=== PATIENT | female | born 1985 | race Caucasian/White ===

== ENCOUNTER 2021-06-25 17:10 | Outpatient (CLI) | payer OTHER, SELFPAY ==
--- NOTE | 2021-06-25 16:18 | DI.RAD_ITS ---
Exam(s) XR FOOT LT COMPLETE EXAM: XR FOOT LT COMPLETE CLINICAL HISTORY: LT HEEL PAIN, M79.672 TECHNIQUE: COMPARISON: No exams were available for comparison FINDINGS: Three views were obtained. There is no evidence of fracture or dislocation. IMPRESSION: RADIATION DOSE DELIVERED: Total DLP
--- NOTE | 2021-06-25 16:40 | DI.VRAD_ITS ---
PROCEDURE INFORMATION: Exam: XR Left Foot Exam date and time: 06/25/2021 4:01 PM Age: 36 years old Clinical indication: Pain; Foot; Left TECHNIQUE: Imaging protocol: XR Left foot. Views: 3 or more views. COMPARISON: No relevant prior studies available. FINDINGS: Bones/joints: There is no evidence of acute fracture. There is no evidence of joint malalignment or dislocation. Soft tissues: There are no soft tissue masses or fluid collections. IMPRESSION: 1. No evidence of acute fracture. 2. No evidence of acute dislocation. Dictated and Authenticated by: Mata Coleman MD. Ordering:DENIZ Addison MD
== END 2021-06-25 17:30 ==
PROVIDERS: Visit Provider Physician Assistant Medical
DX: M79.672 Pain in left foot (principal)
CPT/HCPCS: 73630

== ENCOUNTER 2021-10-08 16:27 | Outpatient (REF) | payer BC, SELFPAY ==
--- NOTE | 2021-10-08 16:15 | PAPFT_PTH ---
PATIENT: Danny Clinton LOC: [facility] U#:[id number] AGE/SX: 36/F ROOM: RE10/08/[address]: Karen Leon : 1985 BED: DIS: 10/08/2021 SPEC #: [id number] RECD: 10/08/21 17:00 STATUS: CHELSEA NAVARRETE #: [id number] DARCY: 10/08/21 16:[address]: Karen Leon DEPT: [facility] Cytology RECD BY: Aleyda Alonzo ENTERED: 10/08/21 17:00 SP TYPE: PAPFT OTHR DR: Roxie Hickman APRN Tissues: 1 - CX/ENDOCX FOR PAP SMEARS Procedures: PAP THIN PREP/[facility] Screening HPV DNA PROBE Comments: [id number]
== END 2021-10-08 16:28 | disposition home or self-care (01) ==
LOC: LBN 16:27
PROVIDERS: PCP Nurse Practitioner; Visit Provider Obstetrics & Gynecology Gynecology
DX: Z12.4 Encounter for screening for malignant neoplasm of cervix (principal); Z11.51 Encounter for screening for human papillomavirus (HPV)
CPT/HCPCS: 88142; 87624

== ENCOUNTER 2022-01-24 03:09 | Outpatient (CLI) | payer BC, SELFPAY ==
--- NOTE | 2022-01-24 07:00 | DI.MAMMO_ITS ---
Exam(s) MAMMO SCREENING EXAM: MAMMO SCREENING CLINICAL HISTORY: screening,Z12.39,H/O LUMPS IN PAST TECHNIQUE: Mammograms were interpreted according to the usual protocol including computer analysis w ith CAD system, tomosynthesis and C-view imaging. COMPARISON: No exams were available for comparison. Baseline examination. FINDINGS: The breasts are composed of scattered fibroglandular densities, Breast Density category B. No suspicious masses or suspicious microcalcifications are seen. There is a circumscribed nodule ivette ngst the grouping vessels in the upper outer quadrant of left breast consistent with an intramammary lymph node. No skin thickening or abnormal axillary lymph nodes are seen. IMPRESSION: BI-RADS Category 1, Negative mammogram Yearly screening mammography is recommended. Breast Density - Category B, scattered fibroglandular densities. A negative radiographic report should not delay biopsy if a dominant or clinically suspicious mass is present. Up to ten percent of cancers are not identified on mammography. A negative report may reinforce clinical impression. Adenosis and dense breasts may obscure an underlying neoplasm. False positive reports average 6 to 10%. Patient will receive a letter notifying them of these results.
== END 2022-01-24 03:29 ==
PROVIDERS: PCP Nurse Practitioner; Visit Provider Nurse Practitioner
DX: Z12.31 Encounter for screening mammogram for malignant neoplasm of breast (principal); N64.59 Other signs and symptoms in breast
CPT/HCPCS: 77063; 77067

== ENCOUNTER 2022-09-15 16:12 | Outpatient (REF) | payer BC, SELFPAY | END 2022-09-15 16:13 | disposition home or self-care (01) | LOC: LBN 16:12 | PROVIDERS: PCP Nurse Practitioner; Visit Provider Nurse Practitioner | DX: R82.90 Unspecified abnormal findings in urine (principal) | CPT/HCPCS: 87086 ==

== ENCOUNTER 2022-12-07 03:06 | Outpatient (CLI) | payer BC, SELFPAY ==
[2022-12-07 08:32] LABS: Calculated LDL 176 mg/dL (<100); Cholesterol 253 mg/dL (<200); HDL Cholesterol 51 mg/dL (40-60); Triglyceride 130 mg/dL (<150)
[2022-12-08 09:51] LABS: Hepatitis C Ab w Rflx HCV PCR Negative (Negative)
== END 2022-12-07 03:07 | disposition home or self-care (01) ==
LOC: LBO 03:06
PROVIDERS: PCP Nurse Practitioner; Referring Provider Nurse Practitioner; Visit Provider Nurse Practitioner
DX: Z11.59 Encounter for screening for other viral diseases (principal); Z13.220 Encounter for screening for lipoid disorders
CPT/HCPCS: 36415; 80061; 86803

== ENCOUNTER 2023-01-26 01:27 | Outpatient (CLI) | payer BC, SELFPAY ==
--- NOTE | 2023-01-26 07:45 | DI.MAMMO_ITS ---
Exam(s) MAMMO SCREENING EXAM: MAMMO SCREENING CLINICAL HISTORY: screening,z12.39 TECHNIQUE: Mammograms were interpreted according to the usual protocol including computer analysis w [employer] CAD system, tomosynthesis and C-view imaging. COMPARISON: 2021 FINDINGS: The breasts are composed of scattered fibroglandular densities, Breast Density category B. No suspicious masses or suspicious microcalcifications are seen. No skin thickening or abnormal axillary lymph nodes are seen. There has been no significant change from prior exams. IMPRESSION: BI-RADS Category 1, Negative mammogram Yearly screening mammography is recommended. Breast Density - Category B, scattered fibroglandular densities. A negative radiographic report should not delay biopsy if a dominant or clinically suspicious mass is present. Up to ten percent of cancers are not identified on mammography. A negative report may reinforce clinical impression. Adenosis and dense breasts may obscure an underlying neoplasm. False positive reports average 6 to 10%. Patient will receive a letter notifying them of these results.
== END 2023-01-26 01:47 ==
LOC: DI 01:27
PROVIDERS: PCP Nurse Practitioner; Visit Provider Nurse Practitioner
DX: Z12.31 Encounter for screening mammogram for malignant neoplasm of breast (principal); R91.8 Other nonspecific abnormal finding of lung field
CPT/HCPCS: 77063; 77067

== ENCOUNTER 2023-02-07 08:47 | Emergency (ER) | payer OTHER, SELFPAY ==
--- NOTE | 2023-02-07 08:45 | DI.RAD_ITS ---
Exam(s) XR ANKLE RT COMPLETE EXAM: XR ANKLE RT COMPLETE CLINICAL HISTORY: Injury, Swelling. TECHNIQUE: 2D digital imaging was performed of the right ankle. Three images were obtained. AP, la teral and oblique views were obtained. COMPARISON: No exams were available for comparison FINDINGS: BONES: No acute fracture is present. No bony destructive lesion is seen. There is a small plantar ca lcaneal spur. JOINTS: The ankle mortise is normally aligned. SOFT TISSUE: There is soft tissue swelling about the ankle particularly laterally. IMPRESSION: Soft tissue swelling about the ankle. No acute fracture or dislocation. DATA REPOSITORY: RADIATION DOSE DELIVERED:
[2023-02-07 08:51] VITALS: BP 132/74; PULSE 101; RESP 22; TEMP 36.9; O2SAT 100
--- NOTE | 2023-02-07 08:53 | W.ED.GENAD ---
Discharge Plan Disposition Patient Disposition: Home Discharge Details Clinical Impression: Moderate right ankle sprain Primary Care Provider: Roxie Hickman ED Provider: Mandy Taylor Home Meds and New Rx's Prescriptions: Continued Mirena 20 mcg/24 hours (7 yrs) 52 mg intrauterine device 1 insert intrauterine ONCE Rx Instructions: as a single dose fluoxetine 20 mg capsule 20 mg PO DAILY Qty: 90 3RF albuterol sulfate 90 mcg/actuation HFA aerosol inhaler 2 puff inhalation QID PRN (Reason: shortness of breath or wheezing) Qty: 25.5 12RF budesonide [Pulmicort] 0.5 mg/2 mL suspension for nebulization 0.5 mg inhalation DAILY PRN (Reason: sob/wheeze) Qty: 120 12RF cyclobenzaprine 5 mg tablet 5 mg PO TID PRN (Reason: muscle spasm) Qty: 30 0RF bupropion HCl 200 mg tablet sustained-release 12 hr 200 mg PO QAM Qty: 30 1RF bupropion HCl 100 mg tablet sustained-release 12 hr 100 mg PO QAM Qty: 30 1RF Patient Comments: not longer on this dose 02/07/2023 CT Discharge Instructions Instructions: Ankle Sprain (ED) Additional Instructions: No evidence of acute fracture or broken bones on the x-ray. I do suspect you have a moderate sprain. Rest, ice, compression elevation. Wear the walking boot as needed for comfort. Toe-touch weightbearing advance as tolerated. Please take Tylenol or Ibuprofen with food every 4-6 hours as needed for pain and swelling. Follow up with primary care provider in 3-5 days. Return to ED sooner if any worsening or concerns. Increase oral fluids. Stand Alone Forms: Work Release Referrals: Roxie Hickman, ADRIAN [Primary Care Provider] - 5 days Discharge Data Discharge Date/Time-TO BE ENTERED AT DEPARTURE: 02/07/23 10:47 Medical Decision Making 37-year-old female presents to the ER with a chief complaint of right ankle injury which occurred prior to arrival while playing basketball. Patient reports that she rolled her ankle and heard a pop. She did have some swelling noted to her lateral malleolus and tenderness. Distal CMS is intact. No other injuries noted. She is unable to bear any weight. She does have a past medical history of ADD endometriosis and asthma. X-ray ice and Percocet ordered. X-ray results are noted below. Patient placed in a walking boot given crutches and instructed on RICE procedures. Verbalized understanding. This text was generated using [employer] dictation system, please disregard any oddities of phrase or misspellings. Imaging Data Radiologic Study: Imaging: X-Ray Radiologist's impression: EXAM:? XR ANKLE RT COMPLETE CLINICAL HISTORY: ? Injury, Swelling. ? TECHNIQUE:? 2D digital imaging was performed of the right ankle.? Three images were obtained.? AP, lateral and oblique views were obtained. COMPARISON:? No exams were available for comparison FINDINGS: BONES: No acute fracture is present.? No bony destructive lesion is seen. There is a small plantar calcaneal spur. JOINTS: The ankle mortise is normally aligned. SOFT TISSUE: There is soft tissue swelling about the ankle particularly laterally.? IMPRESSION: Soft tissue swelling about the ankle.? No acute fracture or dislocation.? HPI General Mode of arrival: wheelchair. Date/Time Provider Initiated Documentation: 02/07/23 08:49. Limitations to Documentation: no limitations. Information obtained by: patient, RN notes reviewed and old records reviewed. HPI Narrative: 37-year-old female presents to the ER with a chief complaint of right ankle injury which occurred prior to arrival while playing basketball. Patient reports that she rolled her ankle and heard a pop. She did have some swelling noted to her lateral malleolus and tenderness. Distal CMS is intact. No other injuries noted. She is unable to bear any weight. She does have a past medical history of ADD endometriosis and asthma. Related Data Home Medications Medication Instructions Recorded Confirmed levonorgestrel 21 mcg/24 hours (8 1 insert intrauterine ONCE 10/08/21 02/07/23 yrs) 52 mg intrauterine device (Mirena) cyclobenzaprine 5 mg tablet 5 mg PO TID PRN muscle spasm #30 07/29/22 02/07/23 tab-caps albuterol sulfate 90 mcg/actuation 2 puff inhalation QID PRN 09/15/22 02/07/23 aerosol inhaler shortness of breath or wheezing #25.5 grams budesonide 0.5 mg/2 mL suspension 0.5 mg (2 mL) inhalation DAILY PRN 09/15/22 02/07/23 for nebulization (Pulmicort) sob/wheeze #120 mL fluoxetine 20 mg capsule 20 mg PO DAILY #90 caps 09/15/22 02/07/23 bupropion HCl 100 mg tablet,12 hr 100 mg PO QAM #30 tabs 12/15/22 01/10/23 sustained-release bupropion HCl 200 mg tablet,12 hr 200 mg PO QAM #30 tabs 01/16/23 02/07/23 sustained-release Previous Rx's Medication Instructions Recorded cyclobenzaprine 5 mg tablet 5 mg PO TID PRN muscle spasm #30 07/29/22 tab-caps albuterol sulfate 90 mcg/actuation 2 puff inhalation QID PRN 09/15/22 aerosol inhaler shortness of breath or wheezing #25.5 grams budesonide 0.5 mg/2 mL suspension 0.5 mg (2 mL) inhalation DAILY PRN 09/15/22 for nebulization (Pulmicort) sob/wheeze #120 mL fluoxetine 20 mg capsule 20 mg PO DAILY #90 caps 09/15/22 bupropion HCl 100 mg tablet,12 hr 100 mg PO QAM #30 tabs 12/15/22 sustained-release bupropion HCl 200 mg tablet,12 hr 200 mg PO QAM #30 tabs 01/16/23 sustained-release Allergies Allergy/AdvReac Type Severity Reaction Status Date / Time grass pollen Allergy Verified 02/07/23 08:56 Review of Systems All systems reviewed & are unremarkable except as noted in HPI and below Musculoskeletal Musculoskeletal: Reports as per HPI and Reports arthralgias PFSH All Active Problems (Updated 02/07/23 @ 10:23 by Mandy Taylor NP) Moderate right ankle sprain (Acute) Attention deficit disorder (ADD) in adult (Acute) TMJ dysfunction (Acute) 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 in [place]. 09/2021. Repeat Pap/HPV. Presence of intrauterine contraceptive device (Chronic) 2018. Mirena IUD. To treat endometriosis. Endometriosis determined by laparoscopy (Chronic) 2018. L ovarian endometrioma s/p cystectomy. Ovary remains. Asthma (Chronic) Surgical History H/O bilateral salpingectomy 2016. R sided at time of RSO. 2018. L laparoscopic salpingectomy History of delivery (~2016) 2012, 2016, History of oophorectomy, unilateral 2016. RSO at time of repeat c/s. Dx endometrioma. Hx of cholecystectomy (~2015) Status post surgical removal and fulguration of bladder neoplasm (~2017) [place], [place]. Benign. Family History Maternal Grandfather Alcohol use disorder Maternal Grandmother Asthma Depression Maternal Aunt No problems noted. Mother Depression Other Cancer Uterine cancer Social History Smoking/Tobacco Use Status: Never Second Hand Exposure: No Smoking risk assessment performed?: Yes Alcohol Intake: current Alcohol Intake frequency: a few times a month Drug use: Never Substance use type: does not use Adopted: No Caregiver/Support person: No Foster care: No Household members: spouse, family, children and other Details: Sukh. Son, Daughter. Mother just moved in from [place]. Housing: house Number of Children: 2 number of grandchildren: 0 Communication Needs: None Education Level: master's degree Do you need help understanding health information?: Rarely current occupation: Teacher health at [employer] Pets and animals: Yes (1) Pets and animals: dog(s) Sexually active: Yes Do you think of yourself as: straight/heterosexual Current gender identity: female What is your relationship status?: How often do you talk on the phone with friends or family?: three or more times per week How often do you get together with friends or relatives?: once per week Do you belong to any clubs or organized social groups?: no Panel score (0-1 are the most socially isolated patients): 2 What type of physical activity do you participate in: walking and other Details: hiking, Farm [employer] Duration: 30-45 minutes/day Frequency: daily Mickie/Presybeterian: None Special mickie needs: No Seatbelt use: always Helmet use: Yes Helmet use: always Drive intox or ride w/intox local hazmat driver: No Additional Social history: 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 Female Reproductive History Menstrual control method: progestin IUCD and permanent sterilization (bialteral salpingectomy. 2018. Mirena IUD placed.) History History 3 Para 2 Hx # Term Pregnancies 2 Multiple births Hx # Pregnancies Ectopic pregnancies AB induced Hx Number of Living Children AB spontaneous 1 Exam Extrem Right lower extremity: ankle Details: tenderness and swelling Details: laterally; no unusual warmth, no abrasions and no lacerations
[2023-02-07] MEDS: oxyCODONE 5 mg/Acetaminophen 325 mg TAB 1 TAB PO (09:02)
== END 2023-02-07 10:47 | disposition home or self-care (01) ==
LOC: ER 11:13
PROVIDERS: Emergency Provider Registered Nurse Emergency; PCP Nurse Practitioner
DX: S93.401A Sprain of unspecified ligament of right ankle, initial encounter (principal); X50.1XXA Overexertion from prolonged static or awkward postures, initial encounter; Y93.67 Activity, basketball; J45.909 Unspecified asthma, uncomplicated; Z79.51 Long term (current) use of inhaled steroids
CPT/HCPCS: 99283; 73610

== ENCOUNTER 2023-02-27 00:25 | Outpatient (CLI) | payer OTHER, SELFPAY ==
--- NOTE | 2023-02-27 07:30 | DI.MRI_ITS ---
Exam(s) MR LOWER JOINT RT WO EXAM: MR LOWER JOINT RT WO CLINICAL HISTORY: Significant right ankle pain status post inversion,s93.401a,m25.571 TECHNIQUE: Multiplanar multisequence MRI was performed without intravenous contrast. COMPARISON: CR XR ANKLE RT COMPLETE from 02/07/2023 FINDINGS: BONES/JOINTS: No fracture or contusion pattern. No bone lesions identified. The talar dome is smooth. The ankle mortise is maintained. There is a very small joint effusion. LIGAMENTS: The tibiofibular and calcaneofibular ligaments are intact. The anterior talofibular ligame nt appears discontinuous at its insertion site onto the fibula and a partial tear cannot be excluded. The posterior talofibular ligament is intact. The deltoid ligament is intact. The syndesmosis is u nremarkable. Sinus tarsi is normal. MUSCULOTENDINOUS STRUCTURES: Achilles tendon: Unremarkable. There is a small amount of fluid seen in the retrocalcaneal bursa. Plantar fascia: Unremarkable. Anterior Extensor tendons: Unremarkable. Posterior Tibialis: Unremarkable. There is fluid seen around the posterior tibialis tendon. Flexor Digitorum longus: Unremarkable. There is a small amount of fluid seen around the flexor digito rum longus tendon. Flexor Hallucis longus: Unremarkable. There is fluid seen around the flexor hallucis longus tendon. Peroneus longus: Unremarkable. Peroneus brevis:Unremarkable. SOFT TISSUES: There is edema seen in the soft tissues in the medial ankle just above the level of the ankle joint. No focal fluid collection is seen. There is also seen fluid posterior to the ankle. OTHER FINDINGS: None. IMPRESSION: 1. No evidence of an occult fracture. 2. No evidence of a tendon tear. 3. The anterior talofibular ligament appears discontinuous at its insertion site onto the fibula and a partial tear cannot be excluded. 4. No other evidence of a ligament tear. 5. Small amount of fluid seen in the retrocalcaneal bursa. This may reflect a mild bursitis. 6. Edema seen in the soft tissues of the medial ankle. 7. Small ankle joint effusion and a small amount of fluid seen around the medial ankle tendons withou t evidence of a tendon tear.Tenosynovitis should be considered. DATA REPOSITORY:
== END 2023-02-27 00:45 ==
LOC: DI 00:26
PROVIDERS: PCP Nurse Practitioner; Visit Provider Nurse Practitioner Family
DX: M25.571 Pain in right ankle and joints of right foot (principal); S93.401A Sprain of unspecified ligament of right ankle, initial encounter
CPT/HCPCS: 73721

== ENCOUNTER 2023-04-16 20:09 | Emergency (ER) | payer BC, SELFPAY ==
[2023-04-16 20:16] VITALS: BP 117/72; PULSE 94; RESP 20; TEMP 37.1; O2SAT 99
--- NOTE | 2023-04-16 20:36 | W.ED.GENAD ---
Discharge Plan Disposition Patient Disposition: Home Condition: Stable Discharge Details Clinical Impression: Avulsion of skin of right lower leg Primary Care Provider: Roxie Hickman ED Provider: Mandy Taylor Home Meds and New Rx's Prescriptions: New cephalexin 500 mg tablet 500 mg PO BID 7 Days Qty: 14 0RF No Action Mirena 20 mcg/24 hours (7 yrs) 52 mg intrauterine device 1 insert intrauterine ONCE Rx Instructions: as a single dose fluoxetine 20 mg capsule 20 mg PO DAILY Qty: 90 3RF albuterol sulfate 90 mcg/actuation HFA aerosol inhaler 2 puff inhalation QID PRN (Reason: shortness of breath or wheezing) Qty: 25.5 12RF budesonide [Pulmicort] 0.5 mg/2 mL suspension for nebulization 0.5 mg inhalation DAILY PRN (Reason: sob/wheeze) Qty: 120 12RF cyclobenzaprine 5 mg tablet 5 mg PO TID PRN (Reason: muscle spasm) Qty: 30 0RF bupropion HCl [Wellbutrin XL] 300 mg tablet extended release 24 hr 300 mg PO QAM Qty: 30 1RF Discharge Instructions Instructions: Animal Bite (ED), Skin Avulsion (ED) Additional Instructions: You were given a tetanus booster here in the department. Please take the antibiotic twice daily with yogurt or probiotic as directed. Wash with running soap and water daily. Allow to air dry at least 2 hours a day. Keep clean and dry. Watch for signs of infection including red streaks, drainage, swelling or increased pain. Follow up with primary care provider in 3-5 days. Return to ED sooner if any worsening or concerns. Increase oral fluids. Please take Tylenol or Ibuprofen with food every 4-6 hours as needed for pain and swelling. Referrals: Roxie Hickman, PRINCIPAL WEB DEVELOPER [Primary Care Provider] - 1 week Discharge Data Discharge Date/Time-TO BE ENTERED AT DEPARTURE: 04/16/23 21:15 Medical Decision Making 37-year-old female presents to the ER with a chief complaint of right posterior knee laceration which occurred just prior to arrival. Patient reports that she was feeding her before when he had advertently cut her leg with his tusk. She is unsure of her tetanus status. Bleeding is controlled upon arrival. She has approximately 3 cm in length avulsion and a smaller abrasion/laceration just inferior to this. Full range of motion. Distal CMS intact. Wound was cleaned by nursing staff development coordinator, nonadherent dressing applied. Patient was given a Tdap booster. Instructed on home care and strict return instructions, verbalized understanding. Full range of motion. Imaging not done due to no puncture wound or suspicion for foreign body. Patient was given cephalexin here in the department and a prescription for cephalexin. To treat empirically for dirty wound. This text was generated using [employer] dictation system, please disregard any oddities of phrase or misspellings. HPI General Mode of arrival: ambulatory. Date/Time Provider Initiated Documentation: 04/16/23 20:28. Limitations to Documentation: no limitations. Information obtained by: patient, RN notes reviewed and old records reviewed. HPI Narrative: 37-year-old female presents to the ER with a chief complaint of right posterior knee laceration which occurred just prior to arrival. Patient reports that she was feeding her before when he had advertently cut her leg with his tusk. She is unsure of her tetanus status. Bleeding is controlled upon arrival. She has approximately 3 cm in length avulsion and a smaller abrasion/laceration just inferior to this. Full range of motion. Related Data Home Medications Medication Instructions Recorded Confirmed levonorgestrel 21 mcg/24 hours (8 1 insert intrauterine ONCE 10/08/21 04/16/23 yrs) 52 mg intrauterine device (Mirena) cyclobenzaprine 5 mg tablet 5 mg PO TID PRN muscle spasm #30 07/29/22 04/16/23 tab-caps albuterol sulfate 90 mcg/actuation 2 puff inhalation QID PRN 09/15/22 04/16/23 aerosol inhaler shortness of breath or wheezing #25.5 grams budesonide 0.5 mg/2 mL suspension 0.5 mg (2 mL) inhalation DAILY PRN 09/15/22 04/16/23 for nebulization (Pulmicort) sob/wheeze #120 mL fluoxetine 20 mg capsule 20 mg PO DAILY #90 caps 09/15/22 04/16/23 bupropion HCl 300 mg 24 hr tablet, 300 mg PO QAM #30 tabs 02/27/23 04/16/23 extended release (Wellbutrin XL) cephalexin 500 mg tablet 500 mg PO BID 7 days #14 tabs 04/16/23 Previous Rx's Medication Instructions Recorded cyclobenzaprine 5 mg tablet 5 mg PO TID PRN muscle spasm #30 07/29/22 tab-caps albuterol sulfate 90 mcg/actuation 2 puff inhalation QID PRN 09/15/22 aerosol inhaler shortness of breath or wheezing #25.5 grams budesonide 0.5 mg/2 mL suspension 0.5 mg (2 mL) inhalation DAILY PRN 09/15/22 for nebulization (Pulmicort) sob/wheeze #120 mL fluoxetine 20 mg capsule 20 mg PO DAILY #90 caps 09/15/22 bupropion HCl 300 mg 24 hr tablet, 300 mg PO QAM #30 tabs 02/27/23 extended release (Wellbutrin XL) cephalexin 500 mg tablet 500 mg PO BID 7 days #14 tabs 04/16/23 Allergies Allergy/AdvReac Type Severity Reaction Status Date / Time grass pollen Allergy Verified 04/16/23 20:19 General Stated Complaint: Laceration BARI: 4 Review of Systems Integumentary/Breasts Skin/Breast: Reports as per HPI and Reports wounds PFSH All Active Problems (Updated 04/16/23 @ 20:59 by Mandy Taylor NP) Avulsion of skin of right lower leg (Acute) Right ankle sprain (Acute) Ankle pain, right (Acute) Attention deficit disorder (ADD) in adult (Acute) TMJ dysfunction (Acute) 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 in [place]. 09/2021. Repeat Pap/HPV. Presence of intrauterine contraceptive device (Chronic) 2018. Mirena IUD. To treat endometriosis. Endometriosis determined by laparoscopy (Chronic) 2018. L ovarian endometrioma s/p cystectomy. Ovary remains. Asthma (Chronic) Surgical History H/O bilateral salpingectomy 2016. R sided at time of RSO. 2018. L laparoscopic salpingectomy History of delivery (~2015) 2012, 2015, History of oophorectomy, unilateral 2016. RSO at time of repeat c/s. Dx endometrioma. Hx of cholecystectomy (~2015) Status post surgical removal and fulguration of bladder neoplasm (~2017) [place], [place]. Benign. Family History Maternal Grandfather Alcohol use disorder Maternal Grandmother Asthma Depression Maternal Aunt No problems noted. Mother Depression Other Cancer Uterine cancer Social History Smoking/Tobacco Use Status: Never Second Hand Exposure: No Smoking risk assessment performed?: Yes Alcohol Intake: current Alcohol Intake frequency: a few times a month Drug use: Never Substance use type: does not use Adopted: No Caregiver/Support person: No Foster care: No Household members: spouse, family, children and other Details: Sukh. Son, Daughter. Mother just moved in from [place]. Housing: house Number of Children: 2 number of grandchildren: 0 Communication Needs: None Education Level: master's degree Do you need help understanding health information?: Rarely current occupation: Teacher health at [employer] Pets and animals: Yes (1) Pets and animals: dog(s) Sexually active: Yes Do you think of yourself as: straight/heterosexual Current gender identity: female What is your relationship status?: How often do you talk on the phone with friends or family?: three or more times per week How often do you get together with friends or relatives?: once per week Do you belong to any clubs or organized social groups?: no Panel score (0-1 are the most socially isolated patients): 2 What type of physical activity do you participate in: walking and other Details: hiking, Farm Chores Duration: 30-45 minutes/day Frequency: daily Mickie/Nondenominational: None Special mickie needs: No Seatbelt use: always Helmet use: Yes Helmet use: always Drive intox or ride w/intox driver engineer: No Additional Social history: 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 Female Reproductive History Menstrual control method: progestin IUCD and permanent sterilization (bialteral salpingectomy. 2018. Mirena IUD placed.) History History 3 Para 2 Hx # Term Pregnancies 2 Multiple births Hx # Pregnancies Ectopic pregnancies AB induced Hx Number of Living Children AB spontaneous 1 Exam Skin Wounds: wounds noted avulsion right posterior knee size (3cm x3cm) Extrem Right lower extremity: knee Knee images: 1. Approximately 3 cm x 2 cm avulsion 2. Puncture wound Course Vital Signs Vital signs: Vital Signs Temperature 37.1 C 04/16/23 20:16 Pulse 94 H 05/28/23 20:16 Respiratory Rate 20 04/16/23 20:16 Blood Pressure 117/72 04/16/23 20:16 Pulse Oximetry 99 04/16/23 20:16 Temperature 37.1 C 04/16/23 20:16 Temperature Source Oral 04/16/23 20:16 Pulse 94 H 04/16/23 20:16 Respiratory Rate 20 04/16/23 20:16 Respiratory Effort Normal 04/16/23 20:21 Blood Pressure 117/72 04/16/23 20:16 Blood Pressure Position Sitting 04/16/23 20:16 Pulse Oximetry 99 04/16/23 20:16 Oxygen Delivery Method Room Air 04/16/23 20:16 Oxygen Flow Rate 0 04/16/23 20:16 Pain Level 2 04/16/23 20:16
[2023-04-16] MEDS: Cephalexin 500 MG CAP, 2 CAPS/BTL PO (20:56)
[2023-04-16] MEDS: Cephalexin 500 MG CAP PO (20:56)
--- NOTE | 2023-04-16 21:16 | NUR.NOTE ---
Nursing Note: Pt understands d/c instructions and next steps of care. Pt given extra wound dressing supplies for home use. Pt stated, thank you for making this experience so much better, I really appreciate it.
== END 2023-04-16 21:15 | disposition home or self-care (01) ==
PROVIDERS: Emergency Provider Registered Nurse Emergency; PCP Nurse Practitioner
DX: S81.011A Laceration without foreign body, right knee, initial encounter (principal); Y99.8 Other external cause status; Y93.K9 Activity, other involving animal care
CPT/HCPCS: 90471; 99284

== ENCOUNTER 2023-06-09 01:54 | Outpatient (CLI) | payer BC, SELFPAY ==
[2023-06-09 09:16] LABS: Abs Immature Grans 0.02 10^3/uL (0.0-0.06); Absolute Basophil Count 0.05 10^3/uL (0.0-0.2); Absolute Eosinophil Count 0.09 10^3/uL (0.0-0.7); Absolute Lymphocyte Count 3.17 10^3/uL (1.2-3.4); Absolute Monocyte Count 0.36 10^3/uL (0.1-0.8); Absolute Neutrophil Count 3.22 10^3/uL (1.2-6.7); Basophils % 0.7; Eosinophils % 1.3; HCT 41.6 % (36.0-46.0); HGB 13.5 g/dL (11.2-15.7); Immature Grans % 0.3; Lymphocytes % 45.9; MCH 29.4 pg (27.0-33.0); MCHC 32.5 % (32.0-36.0); MCV 91 fL (80-95); MPV 10.2 fL (8.0-11.0); Monocytes % 5.2; Neutrophils % 46.6; Platelet Count 313 10^3/uL (130-400); RBC 4.59 10^6/uL (3.93-5.22); RDW 13.3 % (11.7-14.6); RDW-SD 44.3 fL; WBC 6.91 10^3/uL (4.4-10.8)
[2023-06-09 09:17] LABS: ESR 29 mm/hr (0-20)
[2023-06-09 10:41] LABS: Vitamin D 25 Total 25.5 ng/mL (30-100)
[2023-06-09 10:44] LABS: ALT 19 U/L (14-59); AST 15 U/L (15-37); Albumin 3.9 g/dL (3.4-5.0); Alkaline Phosphatase 60 U/L (46-116); Anion Gap 7.8 mmol/L (3-11); BUN 13 mg/dL (7-18); Bilirubin, Total 0.4 mg/dL (0.2-1.0); CO2 28.2 mmol/L (21.0-32.0); CREATININE 0.9 mg/dL (0.55-1.02); Calcium 9.2 mg/dL (8.5-10.1); Chloride 103 mmol/L (98-107); Estimated GFR 82.88 (mL/min/1.73m2); Glucose 74 mg/dL (74-106); Potassium 4.3 mmol/L (3.5-5.1); Sodium 139 mmol/L (136-145); TSH (W/Ref FT4) 2.36 uIU/mL (0.36-3.74); Total Protein 7.5 g/dL (6.4-8.2); Vitamin B12 343 pg/mL (193-986)
[2023-06-09 20:29] LABS: Rheumatoid Factor <8.6 IU/mL (<12.0)
[2023-06-12 09:17] LABS: Lyme Ab w Rflx to Lyme Confirm Negative (Negative)
[2023-06-12 14:34] LABS: ANA Interpretation Negative (Negative)
[2023-06-13 15:38] LABS: Anaplasma phagocytophilum Negative (Negative); B. miyamotoi PCR Negative (Negative); Babesia divergens/MO-1 Negative (Negative); Babesia duncani Negative (Negative); Babesia microti Negative (Negative); Ehrlichia chaffeensis Negative (Negative); Ehrlichia ewingii/canis Negative (Negative); Ehrlichia muris eauclairensis Negative (Negative)
== END 2023-06-09 01:55 | disposition home or self-care (01) ==
LOC: LBO 01:56
PROVIDERS: PCP Nurse Practitioner; Referring Provider Nurse Practitioner; Visit Provider Nurse Practitioner
DX: M25.50 Pain in unspecified joint; R06.83 Snoring; R40.0 Somnolence; R53.83 Other fatigue; E55.9 Vitamin D deficiency, unspecified; I10 Essential (primary) hypertension; Z11.59 Encounter for screening for other viral diseases
CPT/HCPCS: 36415; 80053; 82306; 85652; 87798; 82607; 84443; 85025; 86038; 86431; 86618

== ENCOUNTER → 2023-11-09 09:44 | Outpatient (CLI) | payer BC, SELFPAY ==
--- NOTE | 2023-11-09 09:15 | DI.RAD_ITS ---
Exam(s) XR CHEST 2V PA LATERAL EXAM: XR CHEST 2V PA LATERAL CLINICAL HISTORY: R05.9 cough, R06.89 other abnormalities of breathing,J45.909 asthma TECHNIQUE: 2D digital imaging was performed of the chest. Two images were obtained. PA and lateral views were obtained. COMPARISON: No exams were available for comparison FINDINGS: MEDIASTINUM: Normal. HEART: Normal. PULMONARY VASCULATURE: Normal. LUNGS: Mild perihilar bronchial wall thickening. No focal consolidating infiltrates are seen. PLEURAL SPACE: No pleural effusion or pneumothorax. BONE:Within normal limits for the patient's age. OTHER FINDINGS:Normal. IMPRESSION: Mild bronchial wall thickening. This can be seen with bronchitis. Please correlate clinically. No focal consolidation. DATA REPOSITORY: RADIATION DOSE DELIVERED:
--- OUTSIDE RECORDS SUMMARY | 2023-11-09 09:46 | XMS_ITS | Continuity of Care Document ---
Author Name Unknown Organization [facility] Ambulatory Clinics Address [address] [place] [address] Care Team Providers Care Clerical Order Filler Name Role Phone RITU RAE NP Primary Care Physician Encounter [facility] NBR [id number] Date(s): 03/31/23 - 03/31/23 [facility] Ambulatory Clin[facility] [address] [place] [address]- [place] Patient Care team information Care Team Personnel Name: RITU RAE NP Position: No Access Member Role: Primary Care Physician Address: Address: [address] [place] [id number] [place] [address] Care Team Related Persons Name: Haroldo TREVIZO Address: Home [address] [address]
--- OUTSIDE RECORDS SUMMARY | 2023-11-09 09:46 | XMS_ITS | Continuity of Care Document ---
Author Name Unknown Organization [facility] Ambulatory Clinics Address [address] [place] [address] Care Team Providers Care Automobile Radiator Mechanic Name Role Phone KYRA CAMPBELL, RITU Williamson Primary Care Physician Encounter [facility] NBR [id number] Date(s): 04/25/23 - 04/25/23 [facility] Ambulatory Clinics [address] [place] [address]- [place] Encounter Diagnosis Instability of right ankle joint(Discharge Diagnosis) - 04/25/23 Discharge Disposition: Home or Self Care Attending Physician: Christa Saez ASBESTOS MICROSCOPIST, Allergies, Adverse Reactions, Alerts No Known Medication Allergies Functional Status 04/25/23 Other exposure to Infectious Disease Non e Medications FLUoxetine (Eqv-Sarafem) 20 mg oral tablet 20 mg = 1 tab, Oral, Daily, # 30 tab, 0 Refill(s) Start Date: 04/25/23 Status: Ordered Wellbutrin SR 100 mg/12 hours oral tablet, extended release 100 mg = 1 tab, Oral, Daily, # 60 tab, 0 Refill(s) Start Date: 04/25/23 Status: Ordered Problem List Condition Confirmation Course Effective Dates Status Health [facility] Informant Asthma Confirmed Active Procedures Procedure Date Related Diagnosis Body Site Status section 01/31/16 Complete d Removal of gallbladder 2016 Co mpleted Removal of ovarian cyst 2015 C ompleted section 04/24/13 Complete d Removal of ovarian cyst 2010 C ompleted Procedure on knee 1998 Complet ed Vital Signs Most recent to oldest [Reference Range]: 1 Peripheral Pulse Rate [60-100 bpm] 61 bp m (04/25/23 8:47 AM) Blood Pressure [90-140/60-90 mmHg] 110/7 0mmHg (04/25/23 8:47 AM) Weight 104.33 kg (04/25/23 8:47 AM) Weight Measured (lbs) 230.008 lb (04/25/23 8:47 AM) Height 172.72 cm (04/25/23 8:47 AM) Height/Length Measured (inches) 68 inch (04/25/23 8:47 AM) BSA Measured 2.24 m2 (04/25/23 8:47 AM) Body Mass Index 34.97 kg/m2 (04/25/23 8:47 AM) Social History Social History Type Response Tobacco Never tobacco user T obacco Use:. Sex Hospital Discharge Instructions Follow Up Care 04/12/2023 14:09:33 With:Return to this practice Address: When: only if needed Physician Outpatient Note * Christa Nadja GUERRERON,: PERFORM Event Display: Office Clinic Note Physician Authored Date: [id number] REENA TREVIZO :1985 Age:37 years Sex:Female Visit Date:04/25/2023 Primary Care Physician: RITU RAE NP A Chief Complaint Right ankle sprain History of Present Illness Reena is a very pleasant 37-year-old woman. ??She comes in today for second opinion of a right ankle injury that occurred at work almost 3 months ago.?? 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 ??At the time of injury she felt??a popping and crunching, this was very painful. ??[facility]in the emergency department where x-rays were unrevealing.?? She was treated appropriately withcrutches??and advised to follow-up with orthopedics. ??She was converted to a walking boot??which she tells me she wore for about 8 weeks. ??She also used a scooter. ?? She also started physical therapy.??She has now converted to a lace up ankle brace.?? She feels that the joint is out of alignment, at times either she or the school nurse has to push it back intoplace.?? Her pain has improved. ??She does not have pain at rest, but describes 2-3/10 pain??with weightbearing, activity. ??If she attempts any [id number] movement or inadvertently tweaks the ankle her pain increases.?? She denies numbness or tingling. ??She is concerned about the persistent instability as she is a mobile teacher, going from classroom to classroom. ??She also has a small farm. Review of Systems Constitutional:?No??fevers,?No??chills,?No??sweats Respiratory:?No??shortness of breath,?No??cough Cardiovascular:?No??Chest pain,?No??palpitations,?No??syncope Gastrointestinal:?Nonausea,?No??vomiting,?No??diarrhea Musculoskeletal:??No??back pain,??No??neck pain,??Positive for??right ankle pain/instability,??No??muscle pain,??No??decreased range of motion Integumentary:?No??rash,?No??pruritus,?No??abrasions Neurologic: Alert & oriented X 4 Psychiatric:?No??anxiety,?No??depression Physical Exam Vitals & Measurements HR:??61??(Peripheral)?? BP:??110/70?? SpO2:??96%?? HT:??172.72??cm?? WT:??104.33??kg?? BMI:??34.97?? Pain Score:??2?? BSA:??2.24?? The patient is alert and oriented x3. ??Pleasant and cooperative. ??Well-dressed and well-groomed.?? Appears stated age and is well-nourished and well- developed.?? Examination of the right ankle reveals swelling, primarily laterally.?? There is mild swelling medially. ??No bony point tenderness about the ankle. ??There is point tenderness in the region of the ATFL and throughout the deltoid ligaments.?? Achilles tendon is without palpable disruption or pain. ??Pastrana's test is negative.?? There is discomfort with ligamentous testing laterally??with??soft endpoint compared to the??contralateral ankle.?? No ligamentous instability medially.?? Dorsi and plantarflexion are intact.?? Dorsalis pedis is 2+. ??Skin is warm and pink with brisk capillary refill and sensation is intact distally. Assessment/Plan 1.??Instability of right ankle joint??M25.371 Reena is a very pleasant 37-year-old woman who sustained a right ankle sprain at work about 3 months ago. ??She has been treated appropriately with a walking boot, and is now in a lace up brace. ??She is also been going to physical therapy. ??Although the ankle pain has improved, she continues to have episodes of instability which are quite concerning to her as she lives a very active lifestyle.?? She had an MRI which showed a partial tear of the ATFL.?? At this point as she has not responded to appropriate treatment and continues to have instability of the ankle, we discussed referral to a foot and ankle specialist to see if she would be a candidate for stabilization surgery.?? She would like to move forward with that referral.?? She may continue with all supportive care, I have encouraged her to continue with physical therapy and her home exercise program.?? She may continue to work without restrictions.?? I will see her back in our office??on an as-needed basis. ??She is encouragedto contact me with questions or concerns anytime.?? I spent 30 minutes in??reviewing the record, seeing the patient and documenting in the medical record. Referral Orders Referral Management, Medical Service: Orthopedic Surgery, Reason: Right ankle instability, Type:Evaluate and Treat, Refer To: Provider Not Specified, [facility], [address] [place] [address]., Start: 04/25/23, Instructions: Trung Delgado MD at [facility] Please call p... Follow Up Instructions With When Contact Information Return to this practice Only if needed Additional Instructions: Problem List/Past Medical History Ongoing No qualifying data Historical No qualifying data Medications FLUoxetine (Eqv-Sarafem) 20 mg oral tablet, 20 mg= 1 tab, Oral, Daily Wellbutrin SR 100 mg/12 hours oral tablet, extended release, 100 mg= 1 tab, Oral, Daily Allergies No active allergies Social History Electronic Cigarette/Vaping Electronic Cigarette Use: Never. Employment/School Work/School description: Health Teacher. Tobacco Never tobacco user Tobacco Use:. Diagnostic Results Diagnostic Study Interpretation: X-rays of the right ankle from February 07, 2023 at [facility] have been pushed to the [facility] system and are personally reviewed.?? No acute fracture or dislocation.?? No degenerative changes seen.?? Soft tissueswelling is noted laterally. MRI of the right ankle from February 27, 2023 at [facility] has been pushed to the [facility] system and is personally reviewed.?? No acute fracture, bone marrow edema or bone lesions noted.?? Partial tear noted at the ATFL.?? Syndesmosis is unremarkable as are the remainder of the ligaments.?? No tendon injury.??Small amount of fluid seen at the retrocalcaneal bursa which could represent bursitis. Electronically Signed on 04/25/23 09:45 AM Christa Saez APRN, Patient Care team information Care Team Personnel Name: RITU RAE NP Position: No Access Member Role: Primary Care Physician Address: Address: [address] [place] [address]- Care Team Related Persons Name: Haroldo TREVIZO Address: [place] [id number]
--- OUTSIDE RECORDS SUMMARY | 2023-11-09 09:46 | XMS_ITS | Continuity of Care Document ---
Author Name Unknown Organization [facility] or Sleep Disorders Address [address] [place] [address] Care Team Providers Care Head Resident Name Role Phone Roxie Hickman Primary Care Physician [phone] Encounter [facility] [id number] Date(s): 09/19/23 - 09/19/23 [facility] [address] [place] [address] Discharge Disposition: Home Allergies, Adverse Reactions, Alerts Substance Reaction Severity Status mixed grass pollens allergen extract Unkn own Active Assessment and Plan Future Appointments Medications Adderall 10 mg oral tablet 10 mg 1 tab, Oral, every morning, 0 Refill(s) Start Date: 09/19/23 Status: Ordered albuterol 90 mcg/inh aerosol inhaler PRN, 0 Refill(s) Start Date: 09/12/23 Status: Ordered budesonide 0.5 mg/2 mL inhalation suspension 0.5 mg = 2 mL, NEB, Daily, PRN, # 60 mL, 0 Refill(s) Start Date: 09/12/23 Status: Ordered FLUoxetine 20 mg oral capsule 20 mg = 1 cap, Oral, Daily, # 30 cap, 0 Refill(s) Start Date: 09/12/23 Status: Ordered Mirena 52 mg intrauteral device 0 Refill(s) Start Date: 09/12/23 Status: Ordered zolpidem 5 mg oral tablet See Instructions, take 1-2 PO night of sleep study if needed, # 2 tab, 0 Refill(s), Pharmacy: [facility], 173.99, cm, 09/19/23 8:54:00 EDT, Height, 104.33, kg, 09/19/23 8:58:00 EDT, Weight Dosing Start Date: 09/19/23 Status: Ordered Problem List Condition Confirmation Course Effective Dates Status H ealth Status Informant Right ankle pain Confirmed Active Asthma Confirmed Active Attention deficit disorder Confirmed Active Daytime somnolence Confirmed Active Endometriosis determined by laparoscopy Confirmed Active History of HPV infection Confirmed Active Right ankle sprain Confirmed Active TMJ dysfunction Confirmed Active Social History Social History Type Response Tobacco Never tobacco user T obacco Use:. Sex Patient Care team information Care Team Personnel Name: Roxie Hickman BUSINESS SERVICES INTERN Position: No Access Member Role: Primary Care Physician Address: Address: [facility] [address] [place] [address]- Care Team Related Persons Name: BIBIANA TREVIZO Address: Home [address] [place], [place] [id number]
== END ==
PROVIDERS: PCP Nurse Practitioner; Visit Provider Student in an Organized Health Care Education/Training Program
DX: J45.909 Unspecified asthma, uncomplicated (principal); R06.89 Other abnormalities of breathing
CPT/HCPCS: 71046

== ENCOUNTER 2024-09-30 08:44 | Outpatient (REF) | payer BC, SELFPAY ==
--- NOTE | 2024-09-30 09:35 | PAPFT_PTH ---
PATIENT: Danny Clinton LOC: [facility] U#:[id number] AGE/SX: 39/F ROOM: RE09/30/[address]: Karen Leon : 1985 BED: DIS: 09/30/2024 SPEC #: [id number] RECD: 09/30/24 13:06 STATUS: CHELSEA NAVARRETE #: [id number] DARCY: 09/30/24 09:[address]: Karen Leon DEPT: [facility] Cytology RECD BY: Aleyda Alonzo ENTERED: 09/30/24 13:07 SP TYPE: PAPFT OTHR DR: Roxie Hickman APRN Tissues: 1 - CX/ENDOCX FOR PAP SMEARS Procedures: PAP THIN PREP/UVM Screening HPV DNA PROBE Comments: [id number] (HPV 16 & 18/45)
== END 2024-09-30 08:45 | disposition home or self-care (01) ==
LOC: LBN 08:44
PROVIDERS: PCP Nurse Practitioner; Visit Provider Obstetrics & Gynecology Gynecology
DX: Z12.4 Encounter for screening for malignant neoplasm of cervix (principal)
CPT/HCPCS: 88142; 87624

== ENCOUNTER 2024-10-22 01:02 | Outpatient (CLI) | payer BC, SELFPAY ==
--- NOTE | 2024-10-22 09:00 | DI.MAMMO_ITS ---
Exam(s) MAMMO SCREENING EXAM: MAMMO SCREENING CLINICAL HISTORY: screening TECHNIQUE: Mammograms were interpreted according to the usual protocol including computer analysis w [employer] CAD system, tomosynthesis and C-view imaging. COMPARISON: 2021 and 2022 FINDINGS: The breasts are composed of scattered fibroglandular densities, Breast Density category B. No suspicious masses or suspicious microcalcifications are seen. No skin thickening or abnormal axillary lymph nodes are seen. There has been no significant change from prior exams. IMPRESSION: BI-RADS Category 1, Negative mammogram Yearly screening mammography is recommended. Breast Density - Category B, scattered fibroglandular densities. A negative radiographic report should not delay biopsy if a dominant or clinically suspicious mass is present. Up to ten percent of cancers are not identified on mammography. A negative report may reinforce clinical impression. Adenosis and dense breasts may obscure an underlying neoplasm. False positive reports average 6 to 10%. Patient will receive a letter notifying them of these results.
== END 2024-10-22 01:22 ==
LOC: DI 01:03
PROVIDERS: PCP Nurse Practitioner; Visit Provider Obstetrics & Gynecology Gynecology
DX: Z12.31 Encounter for screening mammogram for malignant neoplasm of breast (principal); R92.323 Mammographic fibroglandular density, bilateral breasts
CPT/HCPCS: 77063; 77067

== ENCOUNTER 2025-01-01 15:57 | Outpatient (REF) | payer BC, SELFPAY ==
--- NOTE | 2025-01-01 15:20 | PAPNONF_PTH ---
PATIENT: Danny Clinton LOC: [facility] U#:[id number] AGE/SX: 39/F ROOM: RE01/01/[address]: Roxie Hickman APRN : 1985 BED: DIS: 01/01/2025 SPEC #: [id number] RECD: 01/01/25 18:17 STATUS: CHELSEA RENina #: [id number] DARCY: 01/01/25 15:[address]: Roxie Hickman DEPT: [facility] Cytology RECD BY: Aleyda Alonzo Tissues: 1 - BODY FLUID CYTO(SPUTUM/URINE)UV Procedures: BODY FLUID CYTO(URINE/SPUTUM) Comments: [id number] (TV = 60 ml, 30 ml CYTOLYT ADDED) (REFRIGERATED)
== END 2025-01-01 15:58 | disposition home or self-care (01) ==
LOC: LBN 15:57
PROVIDERS: PCP Nurse Practitioner; Visit Provider Nurse Practitioner
DX: R82.998 Other abnormal findings in urine (principal)
CPT/HCPCS: 88104

== ENCOUNTER 2025-01-27 10:07 | Emergency (ER) | payer BC, SELFPAY ==
[2025-01-27] VITALS (38 sets, daily range): BP systolic 115–147; BP diastolic 71–103; PULSE 71–105; RESP 8–26; TEMP 36.7; O2SAT 97–100
--- NOTE | 2025-01-27 10:15 | DI.RAD_ITS ---
Exam(s) XR WRIST LT COMPLETE EXAM: XR WRIST LT COMPLETE CLINICAL HISTORY: pain s/p fall. TECHNIQUE: 2D digital imaging was performed of the left wrist. Three images were obtained. PA, obl ique and lateral views were obtained. COMPARISON: No exams were available for comparison FINDINGS: BONES: There is an acute comminuted intra-articular fracture of the distal radius. The fracture is i mpacted. No bony destructive lesion is seen. JOINTS: The carpal bones are normally aligned. SOFT TISSUE: There is soft tissue swelling of the wrist. IMPRESSION: There is an acute comminuted, intra-articular and impacted fracture of the distal left radius. DATA REPOSITORY: RADIATION DOSE DELIVERED:
--- NOTE | 2025-01-27 10:30 | DI.RAD_ITS ---
Exam(s) XR SHOULDER LT COMPLETE 2+V EXAM: XR SHOULDER LT COMPLETE 2+V CLINICAL HISTORY: pain s/p fall. TECHNIQUE: 2D digital imaging was performed of the left shoulder. Three images were obtained. AP, Grashey and Y views were obtained. COMPARISON: CR XR CHEST 2V PA LATERAL from 11/09/2023 FINDINGS: BONES: No acute fracture is present. No bony destructive lesion is seen. The appearance of the acromi on is unchanged compared to prior examinations. JOINTS: No dislocation present. SOFT TISSUE: Normal. IMPRESSION: No acute fracture or dislocation. DATA REPOSITORY: RADIATION DOSE DELIVERED:
[2025-01-27] MEDS: HYDROmorphone 2 MG/ML SYR 1 MG IVP (11:14)
[2025-01-27] MEDS: Ondansetron 4 MG/2 ML VIAL IVP (11:15)
[2025-01-27] MEDS: Ketorolac 15 MG/ML VIAL IVP (11:15)
--- NOTE | 2025-01-27 11:17 | W.ED.GENAD ---
Discharge Plan Disposition Patient Disposition: Home Condition: Stable Discharge Details Clinical Impression: Fracture of left wrist, Contusion of elbow, left, Contusion of left shoulder Primary Care Provider: Roxie Hickman ED Provider: Robert Deleon Home Meds and New Rx's Prescriptions: New oxycodone 5 mg tablet 5 mg PO TID PRN (Reason: pain) Qty: 12 0RF ondansetron 4 mg tablet,disintegrating 4 mg PO Q8H PRN (Reason: nausea and vomiting) Qty: 30 0RF Continued Mirena 20 mcg/24 hours (7 yrs) 52 mg intrauterine device 1 insert intrauterine ONCE Rx Instructions: as a single dose magnesium 200 mg tablet 200 mg PO DAILY turmeric-turmeric root extract 450-50 mg capsule 3 cap PO DAILY zinc gluconate 100 mg tablet 100 mg PO DAILY dextroamphetamine-amphetamine [Adderall XR] 15 mg capsule,extended release 24hr 15 mg PO QAM MDD 15 mg Qty: 28 0RF fluoxetine 20 mg capsule 40 mg PO DAILY Qty: 180 3RF albuterol sulfate 90 mcg/actuation HFA aerosol inhaler 2 puff inhalation QID PRN (Reason: shortness of breath or wheezing) Qty: 25.5 12RF budesonide [Pulmicort] 0.5 mg/2 mL suspension for nebulization 0.5 mg inhalation DAILY PRN (Reason: sob/wheeze) Qty: 120 12RF Discharge Instructions Additional Instructions: Call orthopedics to arrange for follow-up appointment. You can take 600 mg of ibuprofen and 1000 mg of acetaminophen every 6 hours as needed. If you develop severe worsening pain not controlled with medication return to the emergency department for reevaluation. Try to keep your arm elevated is much as possible. Referrals: Arden Gaytan MD [ [facility] STAFF PHYSICIAN] - [facility] General Mode of arrival: ambulatory. Date/Time Provider Initiated Documentation: 01/27/25 10:28. Limitations to Documentation: no limitations. Information obtained by: patient. History of Present Illness 39 year old F presents to the emergency department with the chief complaint of left wrist pain, described as severe, Quality is described as aching, and it has been constant. No relieving factors improve symptom(s), No exacerbating factors reported . Patient notes no other symptoms.. Patient did receive the following treatments prior to arrival, none Related Data Home Medications ?Medication ?Instructions ?Recorded ?Confirmed levonorgestrel 21 mcg/24 hr (up to 1 insert intrauterine ONCE 10/08/21 01/27/25 8 years) 52 mg intrauterine device (Mirena) magnesium 200 mg tablet 200 mg PO DAILY 09/30/24 01/27/25 turmeric 450 mg-turmeric root 3 cap PO DAILY 09/30/24 01/27/25 extract 50 mg capsule zinc gluconate 100 mg tablet 100 mg PO DAILY 09/30/24 01/27/25 albuterol sulfate 90 mcg/actuation 2 puff inhalation QID PRN 12/24/24 01/27/25 aerosol inhaler shortness of breath or wheezing #25.5 grams budesonide 0.5 mg/2 mL suspension 0.5 mg (2 mL) inhalation DAILY PRN 12/24/24 01/27/25 for nebulization (Pulmicort) sob/wheeze #120 mL dextroamphetamine-amphetamine ER 15 mg PO QAM #28 caps 12/24/24 01/27/25 15 mg 24hr capsule,extend release (Adderall XR) fluoxetine 20 mg capsule 40 mg (2 x 20 mg) PO DAILY #180 12/24/24 01/27/25 caps ondansetron 4 mg disintegrating 4 mg PO Q8H PRN nausea and 01/27/25 tablet vomiting #30 tabs oxycodone 5 mg tablet 5 mg PO TID PRN pain #12 tabs 01/27/25 Previous Rx's ?Medication ?Instructions ?Recorded albuterol sulfate 90 mcg/actuation 2 puff inhalation QID PRN 12/24/24 aerosol inhaler shortness of breath or wheezing #25.5 grams budesonide 0.5 mg/2 mL suspension 0.5 mg (2 mL) inhalation DAILY PRN 12/24/24 for nebulization (Pulmicort) sob/wheeze #120 mL dextroamphetamine-amphetamine ER 15 mg PO QAM #28 caps 12/24/24 15 mg 24hr capsule,extend release (Adderall XR) fluoxetine 20 mg capsule 40 mg (2 x 20 mg) PO DAILY #180 12/24/24 caps ondansetron 4 mg disintegrating 4 mg PO Q8H PRN nausea and 01/27/25 tablet vomiting #30 tabs oxycodone 5 mg tablet 5 mg PO TID PRN pain #12 tabs 01/27/25 Allergies Allergy/AdvReac Type Severity Reaction Status Date / Time venom-wasp Allergy Intermediate Swelling; Verified 01/27/25 10:25 Itching grass pollen Allergy exacerbates Verified 01/27/25 10:25 asthma General Stated Complaint: Orthopedic BARI: 4 Review of Systems All systems reviewed & are unremarkable except as noted in HPI and below Constitutional Constitutional: Denies chills, Denies fever(s) and Denies weakness Cardiovascular Cardiovascular: Denies chest pain and Denies dyspnea Respiratory Respiratory: Denies cough and Denies dyspnea Gastrointestinal Gastrointestinal: Denies abdominal pain, Denies nausea and Denies vomiting Neurologic Neurologic: Denies weakness Endocrine Endocrine: Denies heat intolerance Exam Const General: no acute distress Orientation: alert [facility] Head: normal to inspection Ears: external ears normal General nose exam: external nose normal Mouth: moist mucous membranes Eyes General: appearance normal, both eyes and all related structures Neck Neck: normal visual inspection Resp Effort & Inspection: normal respiratory effort and able to speak in complete sentences Auscultation: clear to auscultation bilaterally Cardio Rate: regular rate GI Palpation: soft and nontender Skin General skin exam: no rashes or lesions noted Neuro General: patient alert and patient oriented x3 Extrem General: capillary refill normal Psych Mental Status: mental status grossly normal Course Vital Signs Vital signs: Vital Signs Temperature 36.7 C 01/27/25 10:21 Pulse 91 H 01/27/25 10:21 Respiratory Rate 24 01/27/25 10:21 Blood Pressure 132/84 01/27/25 10:21 Pulse Oximetry 99 01/27/25 10:21 Temperature 36.7 C 01/27/25 10:21 Pulse 91 H 01/27/25 10:21 Respiratory Rate 24 01/27/25 10:21 Blood Pressure 132/84 01/27/25 10:21 Blood Pressure Position Sitting 01/27/25 10:21 Pulse Oximetry 99 01/27/25 10:21 Oxygen Delivery Method Room Air 01/27/25 10:21 Oxygen Flow Rate 0 01/27/25 10:21 Pain Level 10 01/27/25 11:15 Procedure Procedural Sedation Date of Procedure: 01/27/25 Provider that performed the procedure: Robert Deleon Indication: Procedural optimization Patient Consented: Written Standard Time Out Performed: Yes Sedation Given: Ketamine Amount of sedation(mg): 50 Preparation: high school english teacher applied, pulse oximeter, capnometry used, supplemental O2 applied, reversal agents at bedside and IV secured Note: patient tolerated procedure well Medical Decision Making 39-year-old female states she slipped on ice and fell forward landing on her left wrist. Denies any her head or loss of consciousness. She has a deformed and swollen left wrist. She has tenderness to this area with limited range of motion due to pain. No tenderness in the hand with intact cap refill and sensation. She also some tenderness over the lateral elbow and left shoulder with no visible deformity in these areas. No head pain, no neck or back pain or chest or abdomen pain. Suspect wrist fracture, will obtain x-rays of the wrist and also the elbow and shoulder. X-ray confirms left wrist fracture and dislocation. We do not have orthopedics on-call but I was able to send the images to Dr. Gaytan we will follow-up with the patient. She was given IV 50 mg ketamine and I attempted reduction but on post reduction film still has significant deformity, will likely need surgery regardless. CT of her wrist was ordered as well for potential operative planning per orthopedic recs. Patient has intact csmt's and no severepain so doubt compartment syndrome. Will have her call ortho tomorrow and return precautions given Dr. Sandoval and course reviewed the images and feel she would be better suited having surgery at [facility]. Urgent referral placed to have her follow-up with them within a week. Quality:SDOH Health Related Social Needs: No Data to Display PFSH All Active Problems (Updated 01/27/25 @ 14:48 by Robert Deleon MD) Contusion of left shoulder (Acute) Contusion of elbow, left (Acute) Fracture of left wrist (Acute) History of benign bladder tumor (Acute) Anxiety (Chronic) Obstructive sleep apnea of adult (Acute) [facility] 11/29/2308/2023 CPAP Daytime somnolence (Acute ~08/2023) 09/19/23 Sleep Study Planned Sprain of other ligament of right ankle, subsequent encounter (Acute ~06/2023) 06/22/23 Ortho Other instability, right ankle (Acute ~06/2023) 06/22/23 [facility] Right ankle sprain (Acute) Ankle pain, right (Acute) Attention deficit disorder (ADD) in adult (Acute) TMJ dysfunction (Acute) 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 in [place]. 09/2021. Repeat Pap/HPV. Presence of intrauterine contraceptive device (Chronic) 2018. Mirena IUD. To treat endometriosis. Endometriosis determined by laparoscopy (Chronic) 2017. L ovarian endometrioma s/p cystectomy. Ovary remains. Asthma (Chronic) Medical History (Updated 01/27/25 @ 14:48 by Robert Deleon MD) Hx of recurrent pneumonia 4-5 yrs ago Surgical History (Updated 10/24/23 @ 07:23 by Sierra Harmon LPN) History of arthroscopy (~08/16/23) R Ankle by Dr Delgado at H/O bilateral salpingectomy 2015. R sided at time of RSO. 2018. L laparoscopic salpingectomy History of oophorectomy, unilateral 2015. RSO at time of repeat c/s. Dx endometrioma. History of delivery (~2015) 2012, 2015, Hx of cholecystectomy (~2015) Status post surgical removal and fulguration of bladder neoplasm (~2017) [place], [place]. Benign. Family History Maternal Grandfather Alcohol use disorder Maternal Grandmother Asthma Depression Maternal Aunt No problems noted. Mother Depression Other Cancer Uterine cancer Social History (Updated 07/31/23 @ 07:57 by Sierra Harmon LPN) Smoking/Tobacco Use Status: Never Second Hand Exposure: No Smoking risk assessment performed?: Yes Alcohol Intake: current Alcohol Intake frequency: holidays/special occasions only Drug use: Never Substance use type: does not use Adopted: No Caregiver/Support person: No Foster care: No Household members: spouse, family, children and other Details: H-Hermann. Son, Daughter. Mother just moved in from [place]. 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) Pets and animals: Yes (1) Pets and animals: dog(s) Sexually active: Yes Do you think of yourself as: straight/heterosexual Current gender identity: female What is your relationship status?: How often do you talk on the phone with friends or family?: three or more times per week How often do you get together with friends or relatives?: once per week Do you belong to any clubs or organized social groups?: no Panel score (0-1 are the most socially isolated patients): 2 What type of physical activity do you participate in: walking and other Details: hiking, [place] Duration: 30-45 minutes/day Frequency: daily Mickie/Yazidi: None Special mickie needs: No Seatbelt use: always Helmet use: Yes Helmet use: always Drive intox or ride w/intox personal driver: No Working smoke detector in home: Yes Carbon monox detector in home: Yes Do you feel safe at home: Yes Do you feel safe in your relationship?: Yes Additional Social history: 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 Female Reproductive History Menstrual control method: progestin IUCD and permanent sterilization (bialteral salpingectomy. 2018. Mirena IUD placed.) History History 3 Para 2 Hx # Term Pregnancies 2 Multiple births Hx # Pregnancies Ectopic pregnancies AB induced Hx Number of Living Children AB spontaneous 1
--- NOTE | 2025-01-27 11:57 | DI.RAD_ITS ---
Exam(s) XR ELBOW LT LIMITED EXAM: XR ELBOW LT LIMITED CLINICAL HISTORY: pain s/p fall. TECHNIQUE: 2D digital imaging was performed of the left elbow. Two images were obtained. AP and la teral views were obtained. COMPARISON: No exams were available for comparison FINDINGS: BONES: No acute fracture is present. No bony destructive lesion is seen. JOINTS: The elbow is normally aligned. No joint effusion is seen. SOFT TISSUE: Normal. IMPRESSION: No acute fracture or dislocation. DATA REPOSITORY: RADIATION DOSE DELIVERED:
[2025-01-27] MEDS: Normal Saline 1,000 ML 1000 ML IV (12:41)
[2025-01-27] MEDS: Ketamine 500 MG/10 ML VIAL 100 MG IVP (12:58)
--- NOTE | 2025-01-27 13:00 | DI.RAD_ITS ---
Exam(s) XR WRIST LT LIMITED EXAM: XR WRIST LT LIMITED CLINICAL HISTORY: s/p reduction attempt. TECHNIQUE: 2D digital imaging was performed of the left wrist. Two images were obtained. PA and la teral views were obtained. COMPARISON: CR XR WRIST LT COMPLETE from 01/27/2025 FINDINGS: BONES: There is again seen a comminuted intra-articular and impacted fracture of the distal radius. There is mild dorsal angulation of the distal fracture. No bony destructive lesion is seen. JOINTS: The carpal bones are normally aligned. SOFT TISSUE: Normal. The patient's wrist is in a splint. IMPRESSION: Comminuted impacted and dorsally angulated intra-articular fracture of the distal radius. DATA REPOSITORY: RADIATION DOSE DELIVERED:
--- NOTE | 2025-01-27 14:45 | DI.CT_ITS ---
Exam(s) CT UPPER EXTREMITY LT WO EXAM: CT UPPER EXTREMITY LT WO CLINICAL HISTORY: left wrist fracture, operative planning TECHNIQUE: Imaging Protocol: Axial computed tomography images with coronal and sagittal reformatted images were created and reviewed. CONTRAST MATERIAL: Intravenous: None COMPARISON: X-rays of 01/27/2025 reviewed FINDINGS: OSSEOUS: There is an acute comminuted and impacted intra-articular fracture of the distal radius. There is in congruity at the fractured radial joint surface. Distal ulna and ulnar styloid are intact. There is no significant ulnar variance. Scaphoid and scapholunate distance are normal there is no fracture of the scaphoid nor the other carp al row bones. Lunate appears intact other carpal row bones appear unremarkable. IMPRESSION: Comminuted displaced intra-articular fracture of the distal radius. Distal ulna is intact as are the carpal row bones. RADIATION DOSE DELIVERED: 49.04mGy.cm Total DLP DATA REPOSITORY: All CT scans at this facility are submitted to the National Radiology Data Registry (NRDR) Dose Index Registry (DIR) with the [employer] (ACR). RADIATION OPTIMIZATION: All CT scans at this facility use at least one of these dose optimization te chniques: automated exposure control; mA and/or kV adjustment per patient size (includes targeted exa ms where dose is matched to clinical indication); or iterative reconstruction.
[2025-01-27] MEDS: Acetaminophen 500 MG TAB 1000 MG PO (15:16)
[2025-01-27] MEDS: Ondansetron O.D.T. 4 MG TABEF, 3 TABS/BTL PO (15:40)
[2025-01-27] MEDS: Ondansetron O.D.T. 4 MG TABEF PO (15:40)
== END 2025-01-27 15:55 | disposition home or self-care (01) ==
PROVIDERS: Emergency Provider Emergency Medicine; PCP Nurse Practitioner
DX: S52.572A Other intraarticular fracture of lower end of left radius, initial encounter for closed fracture (principal); S50.02XA Contusion of left elbow, initial encounter; S40.012A Contusion of left shoulder, initial encounter; W00.0XXA Fall on same level due to ice and snow, initial encounter; Y93.01 Activity, walking, marching and hiking
CPT/HCPCS: 99152; 99285; 25605; 73030; 73070; 73100; 73110; 73200; J1171; J1885; J2405

== ENCOUNTER 2025-11-10 01:27 | Outpatient (CLI) | payer BC, SELFPAY ==
[2025-11-10 13:57] LABS: Anion Gap 8.4 mmol/L (3-11); BUN 15 mg/dL (9-23); CO2 28.6 mmol/L (20.0-31.0); Calcium 9.5 mg/dL (8.3-10.6); Chloride 107 mmol/L (98-107); Cholesterol 216 mg/dL (<200); Glucose 81 mg/dL (74-106); HDL Cholesterol 41 mg/dL (>or=50); Potassium 4.2 mmol/L (3.5-5.1); Sodium 144 mmol/L (136-145)
== END 2025-11-10 01:28 | disposition home or self-care (01) ==
LOC: LBO 01:27
PROVIDERS: PCP Nurse Practitioner; Referring Provider Nurse Practitioner Adult Health; Visit Provider Nurse Practitioner Adult Health
DX: Z13.220 Encounter for screening for lipoid disorders (principal); Z13.1 Encounter for screening for diabetes mellitus; G47.09 Other insomnia; G47.33 Obstructive sleep apnea (adult) (pediatric); E66.9 Obesity, unspecified
CPT/HCPCS: 36415; 80048; 80061